=== PATIENT | female | born 1950 | race Caucasian/White ===

== ENCOUNTER 2016-11-16 12:45 | Day surgery (SDC) | payer BC ==
[~2016-11-16] VITALS: Ht 170.2 cm; Wt 127.9 kg
[~2016-11-16 12:45] MED LIST: AMLODIPINE BESY10 MG PO; APRESOLINE25 MG PO; ATORVASTATIN CA20 MG PO; BAL B-501 EACH PO; CARVEDILOL25 MG PO; ERGOCALCIF50000 UNIT PO; FOLIC ACID0.4 MG PO; FUROSEMIDE40 MG PO; LEVEMIR100 UNIT/2 SC; NEPHRO-VITE RX1 EACH PO; NITROSTAT0.4 MG SL; NORVASC5 MG PO; NOVOLOG100 UNIT/1 SC; PLAVIX75 MG PO; PROTONIX40 MG PO; RENA-VITE RX T1 EACH PO; SYNTHROID125 MCG PO; VITAMIN B CO1 TABLET PO; VITAMIN C100 MG PO; VITAMIN D32000 UNI1 PO
[2016-11-16 13:16] VITALS: BP 132/79
[2016-11-16 13:37] LABS: HEMATOCRIT 38.5 % (36.0-46.0); MCH 31.3 PG (29.0-34.0); MCHC 31.9 G/DL (30.0-36.0); MEAN PLAT.VOLUME 9.8 uM^3 (9.5-12.4); PLATELET COUNT 173 K/uL (156-360); RBC DIS.WIDTH-CV 15.6 % (11.8-14.6); RED BLOOD COUNT 3.93 M/uL (3.80-5.20); WHITE BLOOD COUNT 6.3 K/uL (4.1-10.2)
[2016-11-16 13:52] LABS: POINT-OF-CARE METER ID UU14174212
[2016-11-16 13:53] LABS: ANION GAP 13 MEQ/L (2-14); CHLORIDE 100 MEQ/L (99-109); POTASSIUM 4.7 MEQ/L (3.7-5.4); SAMPLE HEMOLYSIS CHECK 0; SAMPLE ICTERIC CHECK 0; SAMPLE LIPEMIA CHECK 0; SODIUM 138 MEQ/L (136-147)
[2016-11-16 13:59] LABS: GFR ESTIMATE (CALCULATED) 9 mL/min/; GLUCOSE 124 mg/dL (70-99); UREA NITROGEN (BUN) 40 mg/dL (9-23)
[2016-11-16 14:20] LABS: METH RESISTANT S AUREUS PCR NEGATIVE (NEGATIVE); PROBE CHECK PASS; SPECIMEN PROCESSING CONTROL PASS
[2016-11-16 17:55] VITALS: BP 156/62
[2016-11-16 18:29] VITALS: BP 132/60
== END 2016-11-16 18:36 | disposition home or self-care (01) ==
LOC: SDC 12:45
PROVIDERS: Surgery
DX: T82.858A Stenosis of other vascular prosthetic devices, implants and grafts, initial encounter (principal); Y83.2 Surgical operation with anastomosis, bypass or graft as the cause of abnormal reaction of the patient, or of later complication, without mention of misadventure at the time of the procedure; E11.22 Type 2 diabetes mellitus with diabetic chronic kidney disease; I12.0 Hypertensive chronic kidney disease with stage 5 chronic kidney disease or end stage renal disease; N18.6 End stage renal disease
CPT/HCPCS: 80048; 82948; 85027; 87641; C1725; C1769; C1894; J0690; J1200; J1644; J2250; J2405; J2720; J3010

== ENCOUNTER 2016-12-14 07:19 | Day surgery (SDC) | payer BC ==
[~2016-12-14] VITALS: Ht 170.2 cm; Wt 122.0 kg
[2016-12-14 07:56] VITALS: BP 144/60
[2016-12-14 08:13] LABS: ANION GAP 15 MEQ/L (2-14); CHLORIDE 98 MEQ/L (99-109); POTASSIUM 4.7 MEQ/L (3.7-5.4); SAMPLE HEMOLYSIS CHECK 0; SAMPLE ICTERIC CHECK 0; SAMPLE LIPEMIA CHECK 0; SODIUM 139 MEQ/L (136-147)
[2016-12-14 08:14] LABS: HEMATOCRIT 38.7 % (36.0-46.0); MCH 30.6 PG (29.0-34.0); MCV 95.6 FL (83-99); MEAN PLAT.VOLUME 10.2 uM^3 (9.5-12.4); PLATELET COUNT 174 K/uL (156-360); RBC DIS.WIDTH-CV 14.3 % (11.8-14.6); RED BLOOD COUNT 4.05 M/uL (3.80-5.20)
[2016-12-14 08:16] LABS: WHITE BLOOD COUNT 9.1 K/uL (4.1-10.2)
[2016-12-14 08:18] LABS: GFR ESTIMATE (CALCULATED) 9 mL/min/; GLUCOSE 150 mg/dL (70-99); UREA NITROGEN (BUN) 48 mg/dL (9-23)
[2016-12-14 09:00] LABS: METH RESISTANT S AUREUS PCR NEGATIVE (NEGATIVE); PROBE CHECK PASS; SPECIMEN PROCESSING CONTROL PASS
[2016-12-14 12:00] VITALS: BP 125/60
[2016-12-14 13:05] VITALS: BP 123/53
== END 2016-12-14 13:25 | disposition home or self-care (01) ==
LOC: SDC 07:19
PROVIDERS: Surgery
PROC: 03180JD Bypass Left Brachial Artery to Upper Arm Vein with Synthetic Substitute, Open Approach (ICD-10-PCS; principal; 2016-12-14)
DX: N18.6 End stage renal disease (principal); I12.0 Hypertensive chronic kidney disease with stage 5 chronic kidney disease or end stage renal disease; E11.22 Type 2 diabetes mellitus with diabetic chronic kidney disease; Z99.2 Dependence on renal dialysis; E78.5 Hyperlipidemia, unspecified
CPT/HCPCS: 80048; 82948; 85027; 87641; J0690; J1644; J2250; J2405; J2720; J3010

== ENCOUNTER 2017-03-21 08:23 | Day surgery (SDC) | payer BC ==
[2017-03-21 09:34] LABS: HEMATOCRIT 27.4 % (36.0-46.0); MCH 32.2 PG (29.0-34.0); MCHC 31.8 G/DL (30.0-36.0); MCV 101.5 FL (83-99); MEAN PLAT.VOLUME 10.4 uM^3 (9.5-12.4); PLATELET COUNT 169 K/uL (156-360); RBC DIS.WIDTH-CV 14.2 % (11.8-14.6); WHITE BLOOD COUNT 9.9 K/uL (4.1-10.2)
[2017-03-21 09:45] LABS: POINT-OF-CARE METER ID UU14174212
[2017-03-21 09:52] VITALS: BP 122/57
[2017-03-21 09:59] LABS: ANION GAP 14 MEQ/L (2-14); CHLORIDE 98 MEQ/L (99-109); GFR ESTIMATE (CALCULATED) 7 mL/min/; GLUCOSE 152 mg/dL (70-99); POTASSIUM 4.4 MEQ/L (3.7-5.4); SAMPLE HEMOLYSIS CHECK 0; SAMPLE ICTERIC CHECK 0; SAMPLE LIPEMIA CHECK 0; SODIUM 138 MEQ/L (136-147); UREA NITROGEN (BUN) 64 mg/dL (9-23)
[2017-03-21 13:45] VITALS: BP 139/62
[2017-03-21 14:50] VITALS: BP 118/56
[2017-03-21 16:05] VITALS: BP 136/61
== END 2017-03-21 16:08 | disposition home or self-care (01) ==
LOC: SDC 08:23
PROVIDERS: Surgery; Thoracic Surgery (Cardiothoracic Vascular Surgery)
DX: T82.868A Thrombosis due to vascular prosthetic devices, implants and grafts, initial encounter (principal); I12.0 Hypertensive chronic kidney disease with stage 5 chronic kidney disease or end stage renal disease; E11.22 Type 2 diabetes mellitus with diabetic chronic kidney disease; N18.6 End stage renal disease; Z99.2 Dependence on renal dialysis; Z79.4 Long term (current) use of insulin; E03.9 Hypothyroidism, unspecified; G47.30 Sleep apnea, unspecified; I25.2 Old myocardial infarction; Z95.5 Presence of coronary angioplasty implant and graft; Z86.73 Personal history of transient ischemic attack (TIA), and cerebral infarction without residual deficits; Z91.09 Other allergy status, other than to drugs and biological substances; Z88.8 Allergy status to other drugs, medicaments and biological substances; Y83.2 Surgical operation with anastomosis, bypass or graft as the cause of abnormal reaction of the patient, or of later complication, without mention of misadventure at the time of the procedure
CPT/HCPCS: 80048; 82948; 85027; 93005; C1725; C1757; C1769; C1874; C1894; C2628; J0690; J1200; J1644; J2250; J2720; J3010

== ENCOUNTER 2017-07-24 10:41 | Day surgery (SDC) | payer BC ==
[~2017-07-24] VITALS: Ht 171.4 cm; Wt 112.5 kg
[2017-07-24 11:42] LABS: POINT-OF-CARE METER ID UU13113696
[2017-07-24 12:26] LABS: METH RESISTANT S AUREUS PCR NEGATIVE (NEGATIVE)
[2017-07-24 12:29] LABS: PROBE CHECK PASS; SPECIMEN PROCESSING CONTROL PASS
== END 2017-07-24 13:25 | disposition home or self-care (01) ==
LOC: CATH 10:41
PROVIDERS: Surgery
DX: T82.858A Stenosis of other vascular prosthetic devices, implants and grafts, initial encounter (principal); I12.0 Hypertensive chronic kidney disease with stage 5 chronic kidney disease or end stage renal disease; E11.22 Type 2 diabetes mellitus with diabetic chronic kidney disease; N18.6 End stage renal disease; Z99.2 Dependence on renal dialysis; Z79.4 Long term (current) use of insulin; E78.00 Pure hypercholesterolemia, unspecified; Z79.02 Long term (current) use of antithrombotics/antiplatelets
CPT/HCPCS: 82948; 87641; C1725; C1769; C1894; J1644; J2250; J3010

== ENCOUNTER 2018-04-08 11:02 | Day surgery (SDC) | payer OTHER | END 2018-04-08 14:43 | disposition home or self-care (01) | LOC: CATH 11:02 | PROVIDERS: Surgery | PROC: 03CY3ZZ Extirpation of Matter from Upper Artery, Percutaneous Approach (ICD-10-PCS; principal; 2018-04-08) | PROC: 057Y3DZ Dilation of Upper Vein with Intraluminal Device, Percutaneous Approach (ICD-10-PCS; principal; 2018-04-08) | DX: T82.868A Thrombosis due to vascular prosthetic devices, implants and grafts, initial encounter (principal); T82.858A Stenosis of other vascular prosthetic devices, implants and grafts, initial encounter; Y83.2 Surgical operation with anastomosis, bypass or graft as the cause of abnormal reaction of the patient, or of later complication, without mention of misadventure at the time of the procedure; I12.0 Hypertensive chronic kidney disease with stage 5 chronic kidney disease or end stage renal disease; N18.6 End stage renal disease; Z99.2 Dependence on renal dialysis; Z88.8 Allergy status to other drugs, medicaments and biological substances | CPT/HCPCS: 82948; 87641; C1725; C1757; C1769; C1874; C1894; C2628; J0690; J1644; J2250; J3010; S0020 ==